=== PATIENT | female | born 1980 | race Caucasian/White ===

== ENCOUNTER 2020-04-10 18:53 | Emergency (ER) | payer BC ==
[~2020-04-10] VITALS: Ht 180.3 cm; Wt 117.9 kg
[2020-04-10] MEDS ORDERED: HYDROCHLOROTHIA25 M2 PO (19:13)
[2020-04-10] MEDS ORDERED: SPIRONOLACTONE50 MG PO (19:13)
[2020-04-10] MEDS ORDERED: OMEPRAZOLE 20 M20 M1 PO (19:13)
[2020-04-10] MEDS ORDERED: FLUOXETINE HCL25 GM PO (19:14)
[2020-04-10] MEDS ORDERED: BUPROPION XL300 MG PO (19:14)
[2020-04-10] MEDS ORDERED: METFORMIN HCL500 M3 PO (19:14)
[2020-04-10] MEDS ORDERED: ADIPEX-P37.5 MG PO (19:15)
[2020-04-10] MEDS ORDERED: VITAMIN D250 MC1 PO (19:16)
[2020-04-10 19:57] LABS: ABSOLUTE MONOCYTES 0.3 thou/uL (0.0-1.2); ABSOLUTE NEUTROPHILS 2.6 thou/uL (1.6-8.1); BASOPHILS 0.4 %; EOSINOPHILS 0.1 %; HEMATOCRIT 47.7 % (37.0-47.0); HEMOGLOBIN 15.8 gm/dL (12.0-15.0); LYMPHOCYTES 25.2 %; MCH 28.4 pg (26.0-34.0); MCHC 33.2 g/dL (28.0-37.0); MCV 85.6 fL (80.0-100.0); MONOCYTES 7.2 %; MPV 8.8 fl. (7.2-11.1); NUCLEATED RBCS 0 /100WBC; PLATELET COUNT* 174 thou/uL (150-400); POLYS 67.1 %; RBC 5.57 mil/uL (4.20-5.00); RDW-CV 13.8 % (10.5-14.5); WBC 3.9 thou/uL (4.0-11.0)
[2020-04-10 20:02] LABS: PROTIME 10.5 Seconds (9.20-11.50)
[2020-04-10 20:31] LABS: CALCIUM 9.1 mg/dL (8.5-10.1); CREATININE 1.2 mg/dL (0.6-1.3); POTASSIUM 3.9 mmol/L (3.5-5.1)
[2020-04-10 20:36] LABS: ALBUMIN 3.4 g/dL (3.4-5.0); MAGNESIUM 1.9 mg/dL (1.8-2.4); TOTAL BILIRUBIN 0.4 mg/dL (<0.1-1.0); TOTAL PROTEIN 7.4 g/dL (6.4-8.2)
[2020-04-10 21:13] LABS: URINE BILIRUBIN NEGATIVE (Negative); URINE BLOOD TRACE (Negative); URINE CLARITY CLEAR; URINE COLOR YELLOW; URINE GLUCOSE-RANDOM NEGATIVE (Negative); URINE KETONES NEGATIVE (Negative); URINE LEUKOCYTES-REFLEX NEGATIVE (Negative); URINE NITRITE-REFLEX NEGATIVE (Negative); URINE PROTEIN NEGATIVE (Negative); URINE UROBILINOGEN 0.2 E.U./dl (0.2-1.0)
[2020-04-10] MEDS ORDERED: MOTION RELIEF25 MG PO (21:35)
[2020-04-10] MEDS ORDERED: ZOFRAN ODT4 MG PO (21:35)
[2020-04-10 21:46] VITALS: BP 113/76
--- NOTE | 2020-04-11 14:10 | EKG ---
[place] [address] ELECTROCARDIOGRAM REPORT Name: TAMI YOUNG Room: [facility]#: [id number] Admission: 04/10/20 Attend Phys: Discharge: 04/10/20 Date of : 80 Date of Service: 04/10/201938 Report #: [id number] THIS REPORT FOR: //name// [facility] ED Test Date: 2020-04-10 Test Time: 19:39:47 Pat Name: TAMI YOUNG Department: Room: Gender: F [employer] Operator: YASHIRA : 1980 Requested By: Malaika Howard Order Number: [id number] MD: Capo Dang Measurements Intervals [place] Rate: 85 P: 18 KS: 171 QRS: 6 QRSD: 87 T: 53 QT: 356 QTc: 424 Interpretive Statements Sinus rhythm Anteroseptal infarct, old, possible No previous ECG available for comparison Electronically Signed On 04-11-2020 14:10:00 MEDIC TECHNICIAN by Capo Dang [email or web address] <ELECTRONICALLY SIGNED> By: Capo Dang MD, [facility] 04/11/20 1410 38 38 Capo Dang MD, FACC /EPI
== END 2020-04-10 21:47 | disposition home or self-care (01) ==
LOC: M.ERS 18:53
PROVIDERS: Emergency Medicine
DX: H92.01 Otalgia, right ear (principal); R53.1 Weakness; R11.0 Nausea; I10 Essential (primary) hypertension; K21.9 Gastro-esophageal reflux disease without esophagitis; Z88.1 Allergy status to other antibiotic agents; Z88.2 Allergy status to sulfonamides